=== PATIENT | female | born 1970 | race Caucasian/White ===

== ENCOUNTER 2024-08-11 14:39 | Outpatient (CLI) | payer OTHER, SELFPAY ==
--- NOTE | ~2024-08-11 | XR_ITS ---
XR shoulder LT min 2V Ordering provider: Esha Person, GEORGE History: . Pain L shoulder . Comparison: None. FINDINGS: BONES: No acute fracture or dislocation. JOINT SPACES: The acromioclavicular joint shows mild osteoarthritic changes. The glenohumeral joint i s normal. SOFT TISSUES: Normal. IMPRESSION: No acute osseous abnormality left shoulder. Reviewed, dictated and finalized at location A.
== END 2024-08-11 14:40 | disposition home or self-care (01) ==
LOC: MICIMG 14:43
PROVIDERS: PCP Physician Assistant; Visit Provider Physician Assistant
DX: M25.512 Pain in left shoulder (principal)
CPT/HCPCS: 73030